=== PATIENT | female | born 1990 | race African-American/Black ===

== ENCOUNTER 2023-02-13 15:13 | Emergency (ER) | payer MEDICAID ==
[~2023-02-13] VITALS: Ht 162.6 cm; Wt 73.0 kg
[2023-02-13 15:34] VITALS: O2SAT 99
[2023-02-13] MEDS ORDERED: SODIUM CHLORIDE 0.9% 1,000 ML IV ONE (16:00)
[2023-02-13] MEDS ORDERED: FENTANYL CITRATE/PF 50MCG/ML 2ML VIAL IV ONE ×2 (16:00→16:45)
[2023-02-13 16:18] LABS: BASOPHILS % 0.2 % (0.0-2.0); EOSINOPHILS % 1.4 % (0.0-5.0); HEMATOCRIT. 37.9 % (36.0-48.0); HEMOGLOBIN. 12.9 g/dL (12.0-16.0); MEAN CORPUSCULAR HEMOGLOBIN 31.2 pg (28.0-32.0); MEAN CORPUSCULAR VOLUME 91.5 fL (81.0-99.0); MEAN PLATELET VOLUME 8.1 fl (7.4-10.4); MONOCYTES % 6.3 % (2.0-8.0); NEUTROPHILS % 82.1 % (40.0-76.0); PLATELET 292 x1000/uL (130-400); RED BLOOD CELL COUNT 4.14 mill/uL (4.2-5.4); RED CELL DISTRIBUTION WIDTH 12.7 % (11.6-14.6)
[2023-02-13 16:27] LABS: CHLORIDE 110 mEq/L (98-107)
[2023-02-13 16:29] LABS: HCG SCREEN NEGATIVE
[2023-02-13] MEDS ORDERED: MORPHINE SULFATE 4 MG/ML CPJ (NOT FOR IM USE) IV ONE (18:00)
[2023-02-13] MEDS ORDERED: KETOROLAC 30MG/ML VIAL IV ONE (18:15)
[2023-02-13] MEDS ORDERED: ACET-2708 MT (18:28)
[2023-02-13] MEDS ORDERED: NAPR-1129 MT (18:28)
[2023-02-13 19:54] VITALS: BP 130/74; PULSE 80; RESP 16; TEMP 98.9
== END 2023-02-13 19:54 | disposition home or self-care (01) ==
LOC: ER 15:25
DX: S42.002A Fracture of unspecified part of left clavicle, initial encounter for closed fracture (principal); S42.402A Unspecified fracture of lower end of left humerus, initial encounter for closed fracture; G89.11 Acute pain due to trauma; W26.8XXA Contact with other sharp object(s), not elsewhere classified, initial encounter; Y93.89 Activity, other specified; Y92.89 Other specified places as the place of occurrence of the external cause; Y99.8 Other external cause status; Z98.890 Other specified postprocedural states
CPT/HCPCS: 80053; 84703; 85025; 36415; 71045; 73030; 73060; 73070; 73090; 70450; 72125; 96361; 96374; 96375; 96376; 99291; J3010; J1885; J7030; Z7610 ×4